=== PATIENT | male | born 1995 | race American Indian/Alaskan Native ===

== ENCOUNTER 2019-01-18 05:07 | Emergency (ER) | payer SELFPAY ==
[2019-01-18] MEDS ORDERED: DELTASONE ONE (05:12)
[2019-01-18] MEDS ORDERED: DELTASONE PO ONE (05:12)
--- NOTE | 2019-01-18 10:03 | Emergency Department Report ---
ED Asthma HPI - General Chief Complaint: Adult Asthma Stated Complaint: DIFFICULTY IN BREATHING Time Seen by Provider: 01/18/19 09:50 Source: patient, EMS Mode of arrival: Stretcher Limitations: No Limitations - History of Present Illness Initial Comments: Mr. Bull is a 23-year-old male with history of hypertension and asthma who presents with asthma attack. Present with history of wheezing however treatment in the ED. Symptoms have resolved. Also has a history of seasonal allergies. 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 He denies fever. Denies pain. He denies productive cough. MD Complaint: "asthma attack", shortness of breath, wheezing -: Gradual, This morning Asthma History: adult onset Severity: mild Context: ran out of meds Associated Symptoms: none - Related Data Previous Rx's Medication Instructions Recorded Last Taken Type ALBUTEROL Inhaler (OR & NICU) 2 puff IH QID PRN #1 inhalation 01/18/19 Unknown Rx [ProAir HFA Inhaler] predniSONE [Deltasone] 3 tab PO QDAY 3 Days #9 tab 01/18/19 Unknown Rx Allergies Allergy/AdvReac Type Severity Reaction Status Date / Time amoxicillin Allergy Shortness Verified 01/18/19 05:12 of Breath Penicillins Allergy Shortness Verified 01/18/19 05:12 of Breath ED Review of Systems ROS: Stated complaint: DIFFICULTY IN BREATHING Other details as noted in HPI Comment: All other systems reviewed and negative Constitutional: denies: fever, malaise Respiratory: shortness of breath, wheezing. denies: cough ED Past Medical Hx - Past Medical History Previous Medical History?: Yes Hx Hypertension: Yes Hx Asthma: Yes - Surgical History Past Surgical History?: No - Social History Smoking Status: Never Smoker Substance Use Type: Alcohol - Medications Home Medications: Home Medications Medication Instructions Recorded Confirmed Last Taken Type ALBUTEROL Inhaler (OR & NICU) 2 puff IH QID PRN #1 inhalation 01/18/19 Unknown Rx [ProAir HFA Inhaler] predniSONE [Deltasone] 3 tab PO QDAY 3 Days #9 tab 01/18/19 Unknown Rx ED Physical Exam - General Limitations: No Limitations General appearance: alert, in no apparent distress, other (laying in prone position comfortable and relaxed speaking full word sentences no breathing) - Head Head exam: Present: atraumatic, normocephalic - Eye Eye exam: Present: normal appearance. Absent: scleral icterus, conjunctival injection - ENT ENT exam: Present: mucous membranes moist - Neck Neck exam: Present: normal inspection, full ROM - Respiratory Respiratory exam: Present: normal lung sounds bilaterally. Absent: respiratory distress, wheezes, rales, rhonchi - Cardiovascular Cardiovascular Exam: Present: regular rate, normal rhythm, normal heart sounds. Absent: systolic murmur, diastolic murmur, rubs, gallop - GI/Abdominal GI/Abdominal exam: Present: soft, normal bowel sounds. Absent: distended, tenderness, guarding, rebound - Rectal Rectal exam: Present: deferred - Extremities Exam Extremities exam: Present: normal inspection - Back Exam Back exam: Present: normal inspection - Neurological Exam Neurological exam: Present: alert, oriented X3 - Psychiatric Psychiatric exam: Present: normal affect, normal mood - Skin Skin exam: Present: warm, dry, intact, normal color. Absent: rash ED Course Vital Signs 01/18/19 01/18/19 05:09 07:10 Temperature 97.6 F Pulse Rate 99 H 95 H Respiratory 11 L 16 Rate Blood Pressure 146/89 125/84 O2 Sat by Pulse 95 96 Oximetry ED Medical Decision Making - Medical Decision Making Mr. Bull presents with mild asthma exacerbation. Treated with prednisone here in the ED. Normal lung exam. Prescribed prednisone burst therapy and albuterol MDI. Critical care attestation.: If time is entered above; I have spent that time in minutes in the direct care of this critically ill patient, excluding procedure time. ED Disposition Clinical Impression: Asthma exacerbation Disposition: DC-01 TO HOME OR SELFCARE Is pt being admited?: No Does the pt Need Aspirin: No Condition: Stable Instructions: Asthma (ED) Prescriptions: predniSONE [Deltasone] 3 tab PO QDAY 3 Days #9 tab ALBUTEROL Inhaler (OR & NICU) [ProAir HFA Inhaler] 2 puff IH QID PRN #1 inhalation PRN Reason: Shortness Of Breath Referrals: OSITO JERONIMO MD [Primary Care Provider] - 3-5 Days
[2019-01-18 10:24] VITALS: BP 132/67
== END 2019-01-18 10:25 | disposition home or self-care (01) ==
LOC: ED 05:07
DX: J45.901 Unspecified asthma with (acute) exacerbation (principal); I10 Essential (primary) hypertension; Z88.1 Allergy status to other antibiotic agents; Z88.0 Allergy status to penicillin
CPT/HCPCS: 99283; J7512

== ENCOUNTER 2019-06-21 19:55 | Emergency (ER) | payer SELFPAY ==
--- NOTE | 2019-06-21 21:48 | Event Note ---
ED Screening Note Date of service: 06/21/19 Time: 21:43 ED Screening Note: 24 y/o comes in for lower back pain times several months. Has not taken anything for his pain. This initial assessment/diagnostic orders/clinical plan/treatment(s) is/are subject to change based on patients health status, clinical progression and re- assessment by fellow clinical providers in the ED. Further treatment and workup at subsequent clinical providers discretion. Patient/guardian urged not to elope from the ED as their condition may be serious if not clinically assessed and managed. Initial orders include:
--- NOTE | 2019-06-21 22:04 | Event Note ---
ED Screening Note Date of service: 06/21/19 Time: 21:52 ED Screening Note: 24 y/o comes in for lower back pain times several months. Has not taken anything for his pain. This initial assessment/diagnostic orders/clinical plan/treatment(s) is/are subject to change based on patients health status, clinical progression and re- assessment by fellow clinical providers in the ED. Further treatment and workup at subsequent clinical providers discretion. Patient/guardian urged not to elope from the ED as their condition may be serious if not clinically assessed and managed. Initial orders include:
--- NOTE | 2019-06-21 23:26 | Emergency Department Report ---
ED Back Pain/Injury HPI - General Chief Complaint: Back Pain/Injury Stated Complaint: LOW BACK PAIN Time Seen by Provider: 06/21/19 21:43 Source: patient Mode of arrival: Ambulatory Limitations: No Limitations - History of Present Illness Initial Comments: This is a 24-year-old -[place] male who presents to the emergency room with low back pain for several months. Past medical history of hypertension. Patient reports pain is worse with movement. States his job is very physical not sure if he injured back while at work. He is not taking anything for symptomatic relief. He denies numbness or tingling, weakness, change in urinary or bowel pattern, urinary frequency, urgency, dysuria, abdominal pain, fever or chills. MD Complaint: back pain Onset/Timin -: month(s) Similar Symptoms Previously: Yes Radiation: none Severity: moderate Severity scale (0 -10): 6 Quality: aching Consistency: intermittent Improves With: none Worsens With: movement Context: unknown Associated Symptoms: denies: numbness, difficulty urinating, incontinence, fever/chills - Related Data Previous Rx's Medication Instructions Recorded Last Taken Type ALBUTEROL Inhaler (OR & NICU) 2 puff IH QID PRN #1 inhalation 01/18/19 Unknown Rx [ProAir HFA Inhaler] predniSONE [Deltasone] 3 tab PO QDAY 3 Days #9 tab 01/18/19 Unknown Rx Ibuprofen [Motrin 800 MG tab] 800 mg PO Q8H PRN #20 tablet 06/21/19 Unknown Rx Amlodipine Besylate [Norvasc] 5 mg PO DAILY #30 tablet 06/22/19 Unknown Rx Allergies Allergy/AdvReac Type Severity Reaction Status Date / Time amoxicillin Allergy Shortness Verified 01/18/19 05:12 of Breath Penicillins Allergy Shortness Verified 01/18/19 05:12 of Breath ED Review of Systems ROS: Stated complaint: LOW BACK PAIN Other details as noted in HPI Constitutional: denies: chills, fever Respiratory: denies: cough, shortness of breath, wheezing Cardiovascular: denies: chest pain, palpitations Gastrointestinal: denies: abdominal pain, nausea, diarrhea Musculoskeletal: back pain. denies: joint swelling, arthralgia Skin: denies: rash, lesions Neurological: denies: headache, weakness, paresthesias Psychiatric: denies: anxiety, depression ED Back Pain Physical Exam - Exam General: Vital signs noted. No distress. Alert and acting appropriately. Back/Abdomen: Yes Sacroiliac Tenderness (bilateral, no stepoff, deformity, midline tenderness, erythema, or swelling, FROM), No Abdominal Tenderness, No Perithoracic Tenderness, No Perilumbar Tenderness, No Flank Tenderness, No Straight Leg Raise Pain Neuro: Yes Normal Sensation, Yes Normal DTR's, Yes Normal Gait, No Motor Weakness ED Course Vital Signs 06/21/19 20:29 Temperature 98.2 F Pulse Rate 77 Respiratory 20 Rate Blood Pressure 173/112 O2 Sat by Pulse 99 Oximetry ED Medical Decision Making - Medical Decision Making Patient was examined by me. Patient is nontoxic appearing and stable. Past medical history of hypertension. Patient denies chest pain, palpitations, dizziness, headache, visual changes, or shortness of breath. Given analgesics and clonidine while in the ER. Bilateral L-spine tenderness, no midline tenderness, no step off, deformity, swelling, or erythema, strength 5/5 bilaterally. Physical findings susceptible of muscle strain. Patient informed of results. Patient states he took his last amlodipine 3 days ago. Start ibuprofen and amlodipine. Follow up with PCP or return to the ER with worsening symptoms. Patient discharged home in stable condition. Critical care attestation.: If time is entered above; I have spent that time in minutes in the direct care of this critically ill patient, excluding procedure time. ED Disposition Clinical Impression: Strain of muscle, fascia and tendon of lower back, initial encounter, Asymptomatic hypertension Low back pain Qualifiers: Chronicity: acute Back pain laterality: bilateral Sciatica presence: without sciatica Qualified Code(s): M54.5 - Low back pain Disposition: TO HOME OR SELFCARE Is pt being admited?: No Condition: Stable Instructions: Low Back Strain (ED), Hypertension (ED), Core Strengthening Exercises (GEN), RICE Therapy (ED) Additional Instructions: Rest Use ice or heat on affected area for 20 minutes and off for 2 hours. Take pain medication every 8 hours as needed for pain. Follow up with Primary Care Provider in 2-3 days. Prescriptions: Ibuprofen [Motrin 800 MG tab] 800 mg PO Q8H PRN #20 tablet PRN Reason: Pain , Severe (7-10) Amlodipine Besylate [Norvasc] 5 mg PO DAILY #30 tablet Referrals: [facility] [Outside] - 3-5 Days [facility] [Outside] - 3-5 Days [facility] [Outside] - 3-5 Days Forms: Work/School Release Form(ED) Time of Disposition: 23:36
[2019-06-21] MEDS ORDERED: IBUPROFEN 800 MG TAB PO ONE (23:29)
[2019-06-22] MEDS ORDERED: cloNIDine 0.1 MG TAB PO ONE (00:37)
[2019-06-22 01:28] VITALS: BP 167/96
== END 2019-06-22 01:28 | disposition home or self-care (01) ==
LOC: ED 19:55
DX: S39.012A Strain of muscle, fascia and tendon of lower back, initial encounter (principal); I10 Essential (primary) hypertension; Z88.1 Allergy status to other antibiotic agents; Z88.0 Allergy status to penicillin; X58.XXXA Exposure to other specified factors, initial encounter; Y93.89 Activity, other specified; Y92.89 Other specified places as the place of occurrence of the external cause; Y99.8 Other external cause status